=== PATIENT | female | born 1985 | race Caucasian/White ===

== ENCOUNTER 2016-08-03 15:44 | Emergency (ER) | payer BC ==
[2016-08-03 16:05] VITALS: BP 110/74
--- NOTE | 2016-08-03 16:54 | UC ---
Skin Complaint HPI - History of Current Complaint Chief Complaint: UCSkin Time Seen by Provider: 08/03/16 16:31 Stated Complaint: SKIN COMPLAINT Hx Obtained From: Patient Hx Last Menstrual Period: 3 months ago----IUD ?: No Onset/Duration: Sudden Onset - had tattoo 08/08/16 R upper posterior arm. Several hours later noticed redness and pain, yesterday got worse, today less swelling but redness spreading and painful. Timing: Constant Onset Severity: Mild Current Severity: Moderate Location: Discrete - R upper arm Aggravating: Touch Alleviating: Nothing Associated Signs & Symptoms: Positive: Tenderness - Allergy/Home Medications Allergies/Adverse Reactions: Allergies Allergy/AdvReac Type Severity Reaction Status Date / Time Bupropion [From Wellbutrin] AdvReac Severe "Lowered Verified 08/03/16 16:06 my seizure threshold" Buspirone [From Buspar] AdvReac Severe Vomiting Verified 08/03/16 16:06 sunscreen Allergy Hives Uncoded 08/03/16 16:06 Review of Systems Constitutional: Negative Skin: Other - see note Respiratory: Negative Cardiovascular: Negative Neurological: Negative Psychological: Negative All Other Systems Reviewed And Are Negative: Yes PMH/Surg Hx/FS Hx/Imm Hx Previously Healthy: Yes Endocrine History Of: Denies: Diabetes, Thyroid Disease, Hyperthyroidism, Hypothyroidism, Dyslipidemia Cardiovascular History Of: Denies: Cardiac Disorders, Hypertension, Pacemaker/ICD, Myocardial Infarction , Congestive Heart Failure, Atrial Fibrillation, Deep Vein Thrombosis, Bleeding Disorders Respiratory History Of: Denies: COPD, Asthma, Bronchitis, Pneumonia, Pulmonary Embolism GI/ History Of: Denies: Gastroesophageal Reflux, Ulcer, Gastrointestinal Bleed, Gall Bladder Disease, Kidney Stones, Diverticulitis, Renal Disease, Urosepsis Neurological History Of: Reports: Migraine Denies: TIA, CVA, Dementia, Seizures Psychological History Of: Reports: Anxiety, Depression, Post Traumatic Stress Disorder Denies: Bipolar Disorder, Schizophrenia Cancer History Of: Denies: Lung Cancer, Colorectal Cancer, Breast Cancer, Prostate Cancer, Cervical Cancer Other History Of: Negative For: HIV, Hepatitis B, Hepatitis C, Anticoagulant Therapy - Surgical History Surgical History: Yes Surgery Procedure, Year, and Place: LEEP Procedure - Family History Known Family History: Positive: Cardiac Disease Negative: Hypertension, Diabetes - Social History Occupation: Employed Full-time - teacher's aid, cook Lives: With Family Alcohol Use: Rare Substance Use Type: None Substance Use Comment - Amount & Last Used: 4 days ago Smoking Status (MU): Light Every Day Tobacco Smoker Type: Cigarettes Amount Used/How Often: 1/3 PPD Length of Time of Smoking/Using Tobacco: Off and On for 10 Years Have You Smoked in the Last Year: Yes Cessation Counseling: Patient Advised to Stop - Immunization History Most Recent Influenza Vaccination: " 3 months ago" Most Recent Tetanus Shot: less then 6 yrs Most Recent Pneumonia Vaccination: "3 months ago" Physical Exam Triage Information Reviewed: Yes Appearance: Well-Appearing, No Pain Distress, Well-Nourished Vital Signs: Initial Vital Signs Temp 98.8 F 08/03/16 16:02 Pulse 82 08/03/16 16:02 Resp 12 08/03/16 16:02 BP 110/74 08/03/16 16:02 Pulse Ox 100 08/03/16 16:02 Vital Signs Reviewed: Yes Respiratory Exam: Normal Cardiovascular Exam: Normal Psychological Exam: Normal Skin: Positive: Other - large tattoo R upper post arm with surrounding erythema , warmth, and tenderness, swelling extends to forearm. no loss ROM, painful to touch Course/Dx - Differential Diagnoses - Skin Complaint Differential Diagnoses: Allergic Reaction, Cellulitis, Contact Dermatitis - Diagnoses Provider Diagnoses: cellulitis Discharge - Discharge Plan Condition: Stable Disposition: HOME Prescriptions: Cephalexin CAP* [Keflex 500 CAP*] 500 mg PO QID #40 cap Patient Education Materials: Pelvic Inflammatory Disease (ED), Cellulitis (ED) Forms: *Work Release Referrals: Modesta Ochoa MD [Primary Care Provider] - 2 Days (if no better) Additional Instructions: Use over the counter ibuprofen as directed for pain Take all 10 days of antibiotic as prescribed If your symptoms are worsening at any time please return here or to the ER
== END 2016-08-03 16:58 | disposition home or self-care (01) ==
LOC: UCEAST 15:44
DX: L03.113 Cellulitis of right upper limb (principal); F17.210 Nicotine dependence, cigarettes, uncomplicated
CPT/HCPCS: 99212; G0463

== ENCOUNTER 2016-08-29 15:04 | Emergency (ER) | payer BC ==
[2016-08-29 15:24] VITALS: BP 135/85
--- NOTE | 2016-08-29 16:12 | UC ---
Complaint Female HPI - HPI Summary HPI Summary: Vaginal discharge and odor starting 2-3 days ago. Had unprotected sexual encounter 2.5 weeks ago, also has hx of BV. Last had STI testing in April after breaking up with boyfriend who is IVDU. No f/u testing to that. - History Of Current Complaint Chief Complaint: UCGU Stated Complaint: STD TESTING Time Seen by Provider: 08/29/16 15:39 Hx Obtained From: Patient Hx Last Menstrual Period: 3 months ago ?: No Onset/Duration: Gradual Onset, Lasting Days Timing: Constant Severity Initially: Mild Severity Currently: Mild Character: Dull, Cramping Associated Signs And Symptoms: Positive: Vaginal Discharge - Allergies/Home Medications Allergies/Adverse Reactions: Allergies Allergy/AdvReac Type Severity Reaction Status Date / Time Bupropion [From Wellbutrin] AdvReac Severe "Lowered Verified 08/29/16 15:24 my seizure threshold" Buspirone [From Buspar] AdvReac Severe Vomiting Verified 08/29/16 15:24 sunscreen Allergy Hives Uncoded 08/29/16 15:24 PMH/Surg Hx/FS Hx/Imm Hx Endocrine History Of: Denies: Diabetes, Thyroid Disease, Hyperthyroidism, Hypothyroidism, Dyslipidemia Cardiovascular History Of: Denies: Cardiac Disorders, Hypertension, Pacemaker/ICD, Myocardial Infarction , Congestive Heart Failure, Atrial Fibrillation, Deep Vein Thrombosis, Bleeding Disorders Respiratory History Of: Denies: COPD, Asthma, Bronchitis, Pneumonia, Pulmonary Embolism GI/ History Of: Denies: Gastroesophageal Reflux, Ulcer, Gastrointestinal Bleed, Gall Bladder Disease, Kidney Stones, Diverticulitis, Renal Disease, Urosepsis Neurological History Of: Reports: Migraine Denies: TIA, CVA, Dementia, Seizures Psychological History Of: Reports: Anxiety, Depression, Post Traumatic Stress Disorder Denies: Bipolar Disorder, Schizophrenia Cancer History Of: Denies: Lung Cancer, Colorectal Cancer, Breast Cancer, Prostate Cancer, Cervical Cancer Other History Of: Negative For: HIV, Hepatitis B, Hepatitis C, Anticoagulant Therapy - Surgical History Surgical History: Yes Surgery Procedure, Year, and Place: LEEP Procedure - Family History Known Family History: Positive: Cardiac Disease Negative: Hypertension, Diabetes - Social History Alcohol Use: Occasionally Substance Use Type: Marijuana Substance Use Comment - Amount & Last Used: 4 days ago Smoking Status (MU): Light Every Day Tobacco Smoker Type: Cigarettes Amount Used/How Often: 1/3 PPD Length of Time of Smoking/Using Tobacco: Off and On for 10 Years Have You Smoked in the Last Year: Yes - Immunization History Most Recent Influenza Vaccination: " 3 months ago" Most Recent Tetanus Shot: less then 6 yrs Most Recent Pneumonia Vaccination: "3 months ago" Review of Systems Constitutional: Negative Skin: Negative Eyes: Negative ENT: Negative Respiratory: Negative Cardiovascular: Negative Gastrointestinal: Negative Genitourinary: Other - vaginal discharge Motor: Negative Neurovascular: Negative Musculoskeletal: Negative Neurological: Negative Psychological: Negative All Other Systems Reviewed And Are Negative: Yes Physical Exam Triage Information Reviewed: Yes Appearance: Well-Appearing, No Pain Distress, Well-Nourished Vital Signs: Initial Vital Signs Temp 99.3 F 08/29/16 15:20 Pulse 81 08/29/16 15:20 Resp 18 08/29/16 15:20 BP 135/85 08/29/16 15:20 Pulse Ox 96 08/29/16 15:20 Vital Signs Reviewed: Yes Eye Exam: Normal Eyes: Positive: Conjunctiva Clear ENT Exam: Normal ENT: Positive: Normal ENT inspection, Hearing grossly normal, Pharynx normal, TMs normal Dental Exam: Normal Neck exam: Normal Neck: Positive: Supple, Nontender, No Lymphadenopathy Respiratory Exam: Normal Respiratory: Positive: Chest non-tender, Lungs clear, Normal breath sounds, No respiratory distress, No accessory muscle use Cardiovascular Exam: Normal Cardiovascular: Positive: RRR Abdominal Exam: Normal Abdomen Description: Positive: Nontender, No Organomegaly. Negative: CVA Tenderness (R), CVA Tenderness (L) Neurological Exam: Normal Psychological Exam: Normal Skin Exam: Normal - Additional Comments External genitalia normal, no erythema, masses, lesions. Cervix nontender, IUD strings notable, no discharge or bleeding. No adnexal mass or tenderness. Vaginal swab obtained. Complaint Female Dx - Course Course Of Treatment: Because there are no uncomfortable or distressing symptoms , pt is ok with waiting to see if any treatable infections turn up on lab work. No rx today. - Differential Dx/Diagnosis Provider Diagnoses: STI testing. vaginal discharge. Elevated blood pressure due to discomfort. Discharge - Discharge Plan Condition: Stable Disposition: HOME Patient Education Materials: Sexually Transmitted Diseases (ED) Referrals: Modesta Ochoa MD [Primary Care Provider] - Additional Instructions: Labwork pending. If there is anything that needs treatment, we will call you.
[2016-08-30 09:57] LABS: Syphilis Index < 0.1 Index
== END 2016-08-29 16:25 | disposition home or self-care (01) ==
LOC: UCEAST 15:04
DX: N89.8 Other specified noninflammatory disorders of vagina (principal); Z11.3 Encounter for screening for infections with a predominantly sexual mode of transmission; R03.0 Elevated blood-pressure reading, without diagnosis of hypertension; F12.10 Cannabis abuse, uncomplicated; F17.210 Nicotine dependence, cigarettes, uncomplicated
CPT/HCPCS: 36415; 86592; 86703; 86803; 87480; 87491; 87510; 87591; 99211; G0463

== ENCOUNTER 2017-06-18 10:39 | Emergency (ER) | payer BC ==
[2017-06-18 11:03] VITALS: BP 135/102
--- NOTE | 2017-06-18 12:28 | RAD ---
INDICATION: Neck pain after yoga COMPARISON: Thoracic spine April 19, 2011 TECHNIQUE: Routine five-view imaging was performed FINDINGS: Bones: There are no acute bony findings. There are no significant osteoarthritic findings. There is convexity of the upper thoracic spine to the left Craniocervical junction: The odontoid and atlantodental interval are normal. Alignment: Normal Disc spaces: The disc spaces are well-maintained Soft tissues: The prevertebral soft tissues are normal. IMPRESSION: NO ACUTE BONY FINDINGS. THORACIC SCOLIOSIS.
--- NOTE | 2017-06-18 12:42 | UC ---
Neck Pain HPI - HPI Summary HPI Summary: Patient presents with a past medical history of depression, anxiety, PTSD, Migraine headaches. She presents today with complaints of right sided neck and shoulder pain, and numnbess and tingling that intermittently will radiate down her left arm. She states the symptoms began two day after she restarted yoga. She denies any injury or acute pain at the time of the yoga class. She denies any other injury or trauma. - History of Current Complaint Hx Obtained From: Patient Hx Last Menstrual Period: iud ?: No Onset/Duration Of Injury/Symptoms: Days Timing: Constant Onset/Duration: Gradual Onset, Lasting Days Severity: Severe Pain Intensity: 8 Character: Sharp, Dull, Aching Aggravating Factors: Movement Alleviating Factors: Position Associated Signs & Symptoms: Positive: Negative - Risk Factors Meningitis Risk Factors: Negative <Kirsty Miner - Last Filed: 06/18/17 12:42> <Kristyn Carter - Last Filed: 06/18/17 12:55> - History of Current Complaint Chief Complaint: UCUpperExtremity Stated Complaint: SHOULDER AND NECK PAIN Time Seen by Provider: 06/18/17 11:54 - Allergies/Home Medications Allergies/Adverse Reactions: Allergies Allergy/AdvReac Type Severity Reaction Status Date / Time MS Bupropion AdvReac Severe "Lowered Verified 06/18/17 10:59 [From Wellbutrin] my seizure threshold" MS Buspirone [From Buspar] AdvReac Severe Vomiting Verified 06/18/17 10:59 sunscreen Allergy Hives Uncoded 06/18/17 10:59 PMH/Surg Hx/FS Hx/Imm Hx Previously Healthy: Yes Psychological History: Anxiety, Depression, Post Traumatic Stress Disorder Other History Of: Negative For: HIV, Hepatitis B, Hepatitis C, Anticoagulant Therapy - Surgical History Surgical History: Yes Surgery Procedure, Year, and Place: LEEP Procedure - Family History Known Family History: Positive: Cardiac Disease Negative: Hypertension, Diabetes - Social History Occupation: Employed Full-time Lives: Alone Alcohol Use: Occasionally Substance Use Type: None Substance Use Comment - Amount & Last Used: 4 days ago Smoking Status (MU): Light Every Day Tobacco Smoker Type: Cigarettes Amount Used/How Often: 1/3 PPD Length of Time of Smoking/Using Tobacco: Off and On for 10 Years Have You Smoked in the Last Year: Yes - Immunization History Most Recent Influenza Vaccination: " 3 months ago" Most Recent Tetanus Shot: less then 6 yrs Most Recent Pneumonia Vaccination: "3 months ago" <Kirsty Miner - Last Filed: 06/18/17 12:42> Review Of Systems Constitutional: Positive: Negative Skin: Positive: Negative Eyes: Positive: Negative ENT: Positive: Negative Respiratory: Positive: Negative Cardiovascular: Positive: Negative Gastrointestinal: Positive: Negative Genitourinary: Positive: Negative Musculoskeletal: Positive: Decreased ROM, Myalgia Neurological: Positive: Negative All Other Systems Reviewed And Are Negative: Yes <Rangel Minerna Enoch - Last Filed: 06/18/17 12:42> Physical Exam Triage Information Reviewed: Yes Appearance: Pain Distress Vital Signs: Initial Vital Signs Temp 97 F 06/18/17 11:00 Pulse 93 06/18/17 11:00 Resp 16 06/18/17 11:00 BP 135/102 06/18/17 11:00 Pulse Ox 99 06/18/17 11:00 Vital Signs Reviewed: Yes Eye Exam: Normal ENT Exam: Normal Neck exam: Normal Neck: Positive: 1 Respiratory Exam: Normal Cardiovascular Exam: Normal Cardiovascular: Positive: RRR, No Murmur Abdominal Exam: Normal Musculoskeletal: Positive: ROM Limited @, Other: - cervical spine inspection; vertebra are in good aligment with no step-offs or deformities. no areas on eccymosis, erythema or edema. Palpation, nontender midline. reproducible pain right of c4, c5. rom intact of upper extremities. vasc + radial and ulnar pulses. neuro-no deficits to touch distally. Neurological Exam: Normal Psychological Exam: Normal Skin Exam: Normal <KristoferKirsty Enoch - Last Filed: 06/18/17 12:42> Vital Signs: Initial Vital Signs Temp 97 F 06/18/17 11:00 Pulse 93 06/18/17 11:00 Resp 16 06/18/17 11:00 BP 135/102 06/18/17 11:00 Pulse Ox 99 06/18/17 11:00 <Kristyn Carter - Last Filed: 06/18/17 12:55> Neck Pain Course/Dx - Course Course Of Treatment: Patient presents with complaints of non-traumatic cervical neck pain with radiculaopathy. xrays were obtained and were read by the radiologist as negative which were reviewed with the patient. She was RX flexeril and naprosyn. I told her if no improvement in 2 days to follow up with the orthopedist. She also requested a refill of her amitriptyline and I did rx 14 tablets and have referred her to PCP. She verbalized understanding of and was in agreement with the discharge plan. - Differential Dx/Diagnosis Differential Dx/HQI/PQRI: Sprain, Strain - cervical stain, Other - cervical radiculopathy Provider Diagnoses: cervical strain. cervical radiculopathy <Kirsty Miner - Last Filed: 06/18/17 12:42> Discharge <Kirsty Miner - Last Filed: 06/18/17 12:42> <Kristyn Carter - Last Filed: 06/18/17 12:55> - Discharge Plan Condition: Stable Disposition: HOME Prescriptions: Amitriptyline TAB* [Elavil TAB*] 200 mg PO BEDTIME #14 tab Cyclobenzaprine TAB* [Flexeril 10 MG TAB*] 10 mg PO TID PRN #14 tab MDD 3 PRN Reason: cervical strain Naproxen TAB* [Naprosyn 375 mg TAB*] 375 mg PO BID #14 tab Patient Education Materials: Cervical Strain (DC) Forms: *Work Release Referrals: Modesta Ochoa MD [Primary Care Provider] - Meredith Corcoran MD [Medical Doctor] - Attestation Statement User Type: Provider - I was available for consult. This patient was seen by the [facility]. The patient was not presented to, seen by, or examined by me. Ljj <Kristyn Carter - Last Filed: 06/18/17 12:55>
== END 2017-06-18 12:57 | disposition home or self-care (01) ==
LOC: UCEAST 10:39
DX: S16.1XXA Strain of muscle, fascia and tendon at neck level, initial encounter (principal); M54.12 Radiculopathy, cervical region; X58.XXXA Exposure to other specified factors, initial encounter; Y93.42 Activity, yoga; Y92.9 Unspecified place or not applicable
CPT/HCPCS: 72050; 99212; G0463

== ENCOUNTER 2017-08-28 10:06 | Emergency (ER) | payer BC ==
[2017-08-28 10:13] VITALS: BP 136/88
--- NOTE | 2017-08-28 10:17 | UC ---
UC General HPI - HPI Summary HPI Summary: 31 y/o female presents to the urgent care c/o fatigue w/ joint pains for the past 2 months. Pt is concerned w/ Lyme disease. She has also experienced on and off headaches. She can't recall any tick bites or rashes. Pt denies fever, dizziness, URI, SOB, chest pain, abdominal pain, N/V/D. She hasn't seen her PCP for many years and request a referral. She [facility] a coug[facility] of months ago and thought that was the reason. - History of Current Complaint Chief Complaint: UCGeneralIllness Stated Complaint: SORE, TIRED Time Seen by Provider: 08/28/17 10:14 Hx Obtained From: Patient Hx Last Menstrual Period: mirena Onset/Duration: Gradual Onset, Lasting Weeks - 3 months Onset Severity: Mild Current Severity: Mild Pain Intensity: 4 Associated Signs & Symptoms: Positive: Headache, Weakness, Other - fatigue, arthalgia. Negative: Fever - Allergy/Home Medications Allergies/Adverse Reactions: Allergies Allergy/AdvReac Type Severity Reaction Status Date / Time bupropion [From Wellbutrin] Allergy Anxiety Verified 08/28/17 10:08 buspirone [From BuSpar] Allergy Vomiting Verified 08/28/17 10:09 sunscreen Allergy Hives Uncoded 06/18/17 10:59 PMH/Surg Hx/FS Hx/Imm Hx Previously Healthy: Yes Neurological History: Migraine Other History Of: Negative For: HIV, Hepatitis B, Hepatitis C, Anticoagulant Therapy - Surgical History Surgical History: Yes Surgery Procedure, Year, and Place: LEEP Procedure - Family History Known Family History: Positive: Cardiac Disease, Respiratory Disease - Lung CA Negative: Hypertension, Diabetes - Social History Occupation: Employed Full-time Lives: With Family Alcohol Use: Occasionally Substance Use Type: None Substance Use Comment - Amount & Last Used: 4 days ago Smoking Status (MU): Light Every Day Tobacco Smoker Type: Cigarettes Amount Used/How Often: 1/3 PPD Length of Time of Smoking/Using Tobacco: Off and On for 10 Years Have You Smoked in the Last Year: Yes - Immunization History Most Recent Influenza Vaccination: " 3 months ago" Most Recent Tetanus Shot: less then 6 yrs Most Recent Pneumonia Vaccination: "3 months ago" Review of Systems Constitutional: Fatigue Skin: Negative Eyes: Negative ENT: Negative Respiratory: Negative Cardiovascular: Negative Gastrointestinal: Negative Genitourinary: Negative Motor: Negative Neurovascular: Negative Musculoskeletal: Arthralgia Neurological: Headache - on and off Psychological: Negative Is Patient Immunocompromised?: No All Other Systems Reviewed And Are Negative: Yes Physical Exam - Summary Physical Exam Summary: Vital Signs Reviewed: Yes General: well developed, well nourished female sitting in the examining table w/ o any apparent distress Eyes: Positive: Conjunctiva Clear - PERRLA, EOMI, fundi grossly normal ENT: Positive: Normal ENT inspection, Hearing grossly normal, Pharynx no erythema, no exudate, Nasal congestion - erythematous nasal mucosa, Nasal drainage - clear, TMs normal. Negative: Tonsillar swelling, Tonsillar exudate Neck: Positive: Supple, Nontender, No Lymphadenopathy Respiratory: no orthopnea or dyspnea. Able to speak in full sentences, no retractions or accessory muscle use, no tripod position, stridor, or head bobbing. CTA bilaterally, no wheezing, no rhonchi, no rales, no crackles. Cardiovascular: Positive: RRR, No Murmur, Pulses Normal, Brisk Capillary Refill Abdomen Description: Positive: Nontender, No Organomegaly, Soft. Negative: CVA Tenderness (R), CVA Tenderness (L) Bowel Sounds: Positive: Present Musculoskeletal Exam: Normal Musculoskeletal: Positive: Strength Intact, ROM Intact, No Edema Neurological Exam: Normal Psychological Exam: Normal Skin Exam: Normal Triage Information Reviewed: Yes Vital Signs: Initial Vital Signs Temp 97 F 08/28/17 10:10 Pulse 72 08/28/17 10:10 Resp 16 08/28/17 10:10 BP 136/88 08/28/17 10:10 Pulse Ox 100 08/28/17 10:10 Course/Dx - Course Course Of Treatment: 31 y/o female presents to the urgent care c/o fatigue w/ joint pains for the past 2 months. Pt is concerned w/ Lyme disease. She has also experienced on and off headaches. She can't recall any tick bites or rashes. Pt denies fever, dizziness, URI, SOB, chest pain, abdominal pain, N/V/D , urinary problems, vagianl D/C or Hx of STD's. She hasn't seen her PCP for many years and request a referral. She started to go to the [facility] a couple of months ago and thought that was the reason. Hx obtained. PE: WNL. Lyme serology ordered. Pt will be notified of the result. Pt advised to make an appt w/ a PCP from the [facility] referral line in 2-3 days for a full blood work-up to r/o any anemia, thyroid levels, etc. Pt understood and agreed w/ D/C instructions. - Differential Dx - Multi-Symptom Differential Diagnoses: Other - lyme disease, anemia, hythyrodism, Provider Diagnoses: 1-Fatigue. 2-Arthalgia. 3-Screeaning for lyme disease Discharge - Sign-Out/Discharge Documenting (check all that apply): Discharge - Discharge Plan Condition: Stable Disposition: HOME Patient Education Materials: Lyme Disease (ED), Arthralgia (ED), Fatigue (ED) Referrals: [facility] REFERRAL [Outside] - 1 Day Ravin GARCIA,Ezio Simpson [Medical Doctor] - If Needed Modesta Ochoa MD [Primary Care Provider] - 2 Days Additional Instructions: 1- Lyme Serology and blood work was ordered.. You will be notified of results. 2- Please make an appt w/ a PCP from the [facility] network for a full blood work and further management in you fatigue and joint pains. Pleasd increase fluid intake , eat well, avoid strenuous exercise 3- If lyme serology return positive please F/u with DR Alicia or a PCP in 1 week for further management in Lyme Disease - Billing Disposition and Condition Condition: STABLE Disposition: HOME
== END 2017-08-28 10:38 | disposition home or self-care (01) ==
LOC: UCEAST 10:06
DX: R53.83 Other fatigue (principal); M25.50 Pain in unspecified joint; R51 Headache; Z88.8 Allergy status to other drugs, medicaments and biological substances; F17.210 Nicotine dependence, cigarettes, uncomplicated
CPT/HCPCS: 86618; 99211; G0463

== ENCOUNTER 2018-11-14 08:52 | Emergency (ER) | payer BC ==
[2018-11-14 08:59] VITALS: BP 125/87
--- NOTE | 2018-11-14 09:11 | UC ---
Skin Complaint HPI - HPI Summary HPI Summary: patient has tattoo done 2 days ago to R upper arm. yesterday the surrounding area turned red and swollen and painful. she worked last pm and worse a "sleeve " to cover tattoo and last night arm was so painful she applied ice packs all night . today is a bit less painful and swollen but still not resolved. she has had many tattoos in past w/o similar symps - History of Current Complaint Chief Complaint: [facility]kin Time Seen by Provider: 11/14/18 08:55 Stated Complaint: REACTION ON RIGHT ARM Hx Obtained From: Patient Hx Last Menstrual Period: mirena ?: No Onset/Duration: Sudden Onset Pain Intensity: 6 Aggravating Factor(s): Touch Alleviating Factor(s): Cold Associated Signs & Symptoms: Positive: Tenderness. Negative: Difficulty Breathing, Fever, Chills, Bruising, Red Streaks - Allergy/Home Medications Allergies/Adverse Reactions: Allergies Allergy/AdvReac Type Severity Reaction Status Date / Time bupropion [From Wellbutrin] Allergy Anxiety Verified 11/14/18 08:59 buspirone [From BuSpar] Allergy Vomiting Verified 11/14/18 08:59 sunscreen Allergy Hives Uncoded 11/14/18 08:59 Home Medications: Home Medications clonazePAM TAB(*) [Klonopin TAB(*)] 1 mg PO Q8H PRN 11/14/18 [History Confirmed 11/14/18] PMH/Surg Hx/FS Hx/Imm Hx Previously Healthy: Yes Psychological History: Depression Other History Of: Negative For: HIV, Hepatitis B, Hepatitis C, Anticoagulant Therapy - Surgical History Surgical History: Yes Surgery Procedure, Year, and Place: LEEP Procedure - Family History Known Family History: Positive: Cardiac Disease, Respiratory Disease - Lung CA Negative: Hypertension, Diabetes - Social History Occupation: Employed Full-time Lives: With Family Alcohol Use: Occasionally Substance Use Type: None Substance Use Comment - Amount & Last Used: 4 days ago Smoking Status (MU): Light Every Day Tobacco Smoker Type: Cigarettes Amount Used/How Often: 1/3 PPD Length of Time of Smoking/Using Tobacco: Off and On for 10 Years Have You Smoked in the Last Year: Yes Cessation Counseling: Patient Advised to Stop - Immunization History Most Recent Influenza Vaccination: " 3 months ago" Most Recent Tetanus Shot: less then 6 yrs Most Recent Pneumonia Vaccination: "3 months ago" Review of Systems All Other Systems Reviewed And Are Negative: Yes Constitutional: Positive: Negative. Negative: Fever, Chills Skin: Positive: Other - R arm redness Respiratory: Positive: Negative Cardiovascular: Positive: Negative Musculoskeletal: Positive: Negative Neurological: Positive: Negative Psychological: Positive: Negative Is Patient Immunocompromised?: No Physical Exam Triage Information Reviewed: Yes Appearance: Well-Appearing, No Pain Distress, Well-Nourished Vital Signs: Initial Vital Signs Temp 97.2 F 11/14/18 08:55 Pulse 81 11/14/18 08:55 Resp 18 11/14/18 08:55 BP 125/87 11/14/18 08:55 Pulse Ox 100 11/14/18 08:55 Vital Signs Reviewed: Yes Respiratory Exam: Normal Respiratory: Positive: Lungs clear Cardiovascular Exam: Normal Cardiovascular: Positive: RRR Musculoskeletal Exam: Normal Musculoskeletal: Positive: Strength Intact, ROM Intact Psychological Exam: Normal Skin: Positive: Other - new tattoo upper R arm with surrounding redness, mild swelling and tenderness. no vesicles or raised lesions. no drainage Course/Dx - Differential Diagnoses - Skin Complaint Differential Diagnoses: Allergic Reaction, Cellulitis, Contact Dermatitis - Diagnoses Provider Diagnosis: Cellulitis Discharge - Sign-Out/Discharge Documenting (check all that apply): Patient Departure All imaging exams completed and their final reports reviewed: No Studies - Discharge Plan Condition: Stable Disposition: HOME Prescriptions: Cephalexin CAP* [Keflex CAP*] 500 mg PO QID #28 cap Patient Education Materials: Cellulitis (ED) Forms: *Work Release Referrals: Yang Baptiste MD [Primary Care Provider] - 2 Days (for recheck if no better) Additional Instructions: keep area clean and dry start antibiotic and take as directed (Keflex) also use benadryl (over the counter) 50mg every 6-8 hours for 1-2 days return if you experience fever or chills or pain and swelling worsens - Billing Disposition and Condition Condition: STABLE Disposition: Home
== END 2018-11-14 09:17 | disposition home or self-care (01) ==
LOC: UCEAST 08:52
DX: L03.113 Cellulitis of right upper limb (principal); F32.9 Major depressive disorder, single episode, unspecified; F17.210 Nicotine dependence, cigarettes, uncomplicated
CPT/HCPCS: 99212; G0463

== ENCOUNTER 2019-01-03 16:42 | Emergency (ER) | payer BC ==
[2019-01-03 17:06] VITALS: BP 140/87
[2019-01-03] MEDS ORDERED: diPHENhydraMINE IV* 50 MG/ML 1 ml VIAL (BENADRYL) IV ONE (17:27)
[2019-01-03] MEDS ORDERED: Metoclopramide IV* 5 MG/ML 2 ML VIAL IV ONE (17:27)
[2019-01-03] MEDS ORDERED: Ketorolac INJ* 30 MG/ML 1 ML VIAL IV ONE (17:27)
[2019-01-03] MEDS ORDERED: NS 0.9% 1000 ML** 1,000 ML IV ONE (17:28)
--- NOTE | 2019-01-03 17:36 | UC ---
General HPI - HPI Summary HPI Summary: Ms. Vasquez started about 6 days ago with nausea and vomiting which led to diarrhea. This lasted a day or 2 and has pretty much resolved. On the third day she had a very bad migraine which is something that she suffers from frequently. She uses Maxalt and Maxalt did not help in this case which occasionally happens. Her headache has improved but she still continues to have a frontal headache without a feeling of stuffiness or congestion. She has no photophobia but is still nauseated. She feels like she is not sleeping well , having cold and hot flashes and just generally not feeling right. - History of Current Complaint Chief Complaint: UCGeneralIllness Stated Complaint: NAUSEA, DIARRHEA, AND HEADACHES Time Seen by Provider: 01/03/19 17:13 Hx Obtained From: Patient Hx Last Menstrual Period: doesn't get d/t mirena Onset/Duration: Sudden Onset Timing: Constant Onset Severity: Moderate Current Severity: Mild Pain Intensity: 3 - Allergy/Home Medications Allergies/Adverse Reactions: Allergies Allergy/AdvReac Type Severity Reaction Status Date / Time bupropion [From Wellbutrin] AdvReac See Comment Verified 01/03/19 17:06 buspirone [From BuSpar] AdvReac Vomiting Verified 01/03/19 17:06 sunscreen Allergy Hives Uncoded 11/14/18 08:59 Home Medications: Home Medications Atenolol TAB* [Tenormin TAB* 25 MG] 25 mg PO DAILY 01/03/19 [History Confirmed 01/03/19] Ibuprofen TAB* [Advil TAB*] 400 mg PO ONCE PRN 01/03/19 [History Confirmed 01/03] Rizatriptan Benzoate [Maxalt Build Engineer] 5 mg PO 01/03/19 [History] PMH/Surg Hx/FS Hx/Imm Hx Previously Healthy: Yes Endocrine History: Other - Migraine Other History Of: Negative For: HIV, Hepatitis B, Hepatitis C, Anticoagulant Therapy - Surgical History Surgical History: Yes Surgery Procedure, Year, and Place: LEEP Procedure - Family History Known Family History: Positive: Cardiac Disease, Respiratory Disease - Lung CA Negative: Hypertension, Diabetes - Social History Alcohol Use: Weekly Substance Use Type: None Substance Use Comment - Amount & Last Used: 4 days ago Smoking Status (MU): Light Every Day Tobacco Smoker Type: Cigarettes Amount Used/How Often: 1/3 PPD Length of Time of Smoking/Using Tobacco: Off and On for 10 Years Have You Smoked in the Last Year: Yes - Immunization History Most Recent Influenza Vaccination: " 3 months ago" Most Recent Tetanus Shot: less then 6 yrs Most Recent Pneumonia Vaccination: "3 months ago" Review of Systems All Other Systems Reviewed And Are Negative: Yes Constitutional: Positive: Chills, Fatigue Skin: Positive: Negative Eyes: Positive: Negative ENT: Positive: Negative Motor: Positive: Negative Neurovascular: Positive: Negative Musculoskeletal: Positive: Arthralgia Neurological: Positive: Headache Psychological: Positive: Negative Is Patient Immunocompromised?: No Physical Exam - Summary Physical Exam Summary: She is nontoxic in appearance with stable vital signs Triage Information Reviewed: Yes Appearance: Well-Appearing Vital Signs: Initial Vital Signs Temp 99 F 01/03/19 17:02 Pulse 82 01/03/19 17:02 Resp 16 01/03/19 17:02 BP 140/87 01/03/19 17:02 Pulse Ox 100 01/03/19 17:02 Vital Signs Reviewed: Yes Eyes: Positive: Conjunctiva Clear ENT: Positive: Normal ENT inspection, Other - Sinuses transilluminate well Neck exam: Normal Neck: Positive: Supple, Nontender, No Lymphadenopathy Respiratory Exam: Normal Cardiovascular Exam: Normal Abdominal Exam: Normal Neurological Exam: Normal Skin Exam: Normal Course/Dx - Course Course Of Treatment: She improved with IV fluids accompanied by ketorolac, diphenhydramine and metoclopramide. Think is likely viral and she got somewhat dehydrated. She should improve quickly. - Diagnoses Provider Diagnosis: Viral syndrome Discharge - Sign-Out/Discharge Documenting (check all that apply): Patient Departure All imaging exams completed and their final reports reviewed: No Studies - Discharge Plan Condition: Stable Disposition: HOME Patient Education Materials: Viral Syndrome (ED) Forms: *Work Release Referrals: Yang Baptiste MD [Primary Care Provider] - - Billing Disposition and Condition Condition: STABLE Disposition: Home
== END 2019-01-03 18:38 | disposition home or self-care (01) ==
LOC: UCEAST 16:42
DX: B34.9 Viral infection, unspecified (principal); F17.210 Nicotine dependence, cigarettes, uncomplicated
CPT/HCPCS: 96360; 96374; 96375; 99211; G0463; J1200; J1885; J2765